=== PATIENT | male | born 1965 | race Caucasian/White ===

== ENCOUNTER 2019-12-07 05:23 | Inpatient (IN) | payer MEDICAID ==
[~2019-12-07] VITALS: Ht 172.7 cm; Wt 106.6 kg
[2019-12-07] VITALS (55 sets, daily range): BP systolic 81–166; BP diastolic 39–89
[~2019-12-07 05:23] MED LIST: AMLO10TA80 MT; ASPI-1497 MT; ATEN-42 MT; ATOR10TA69 MT; GABA-290 MT; GLIP10TA10 MT; HYDR-4001 PO; HYDR12.54 MT; IBUP-2437 PO; LOSA50TA41 PO; TRAM50TA3 PO
[2019-12-07] MEDS ORDERED: SODIUM CHLORIDE 0.9% 1,000 ML IV SCH (06:00)
[2019-12-07] MEDS ORDERED: THROMBIN (BOVINE) 5000 UNITS/VIAL TOP ONE (06:41)
[2019-12-07] MEDS ORDERED: BACITRACIN 15GM TUBE TOP ONE (06:41)
[2019-12-07] MEDS ORDERED: LIDOCAINE HCL/EPINEPHRINE 1%-EPI 1:100,000 20 ML VIAL ONE (06:42)
[2019-12-07] MEDS ORDERED: BACITRACIN 50,000 UNITS/VIAL ONE (06:42)
[2019-12-07] MEDS ORDERED: FENTANYL CITRATE/PF 50MCG/ML 2ML VIAL ONE ×2 (06:44→09:58)
[2019-12-07] MEDS ORDERED: NEOSTIGMINE METHYLSULFATE 1MG/ML 10 ML VIAL ONE (06:45)
[2019-12-07] MEDS ORDERED: ROCURONIUM BROMIDE 10MG/ML VIAL 5ML IV ONE ×2 (06:45→08:59)
[2019-12-07] MEDS ORDERED: PROPOFOL 200MG/20ML VIAL IV ONE (06:45)
[2019-12-07] MEDS ORDERED: GLYCOPYRROLATE 0.2 MG/ML 2ML VIAL ONE ×2 (06:45→09:50)
[2019-12-07] MEDS ORDERED: MIDAZOLAM HCL 2 MG/2 ML VIAL ONE ×2 (06:45→09:58)
[2019-12-07 06:52] LABS: CHLORIDE 101 mEq/L (98-107)
[2019-12-07] MEDS ORDERED: HYDROMORPHONE HCL/PF 2MG/ML (OR) ONE (07:48)
[2019-12-07] MEDS ORDERED: ONDANSETRON HCL 4MG/2ML INJ ONE (07:48)
[2019-12-07] MEDS ORDERED: DEXAMETHASONE 4MG/ML 1ML VIAL ONE (07:48)
[2019-12-07] MEDS ORDERED: ONDANSETRON HCL 4MG/2ML INJ IV PRN (08:00)
[2019-12-07] MEDS ORDERED: HYDROMORPHONE HCL/PF 2MG/ML CPJ IV PRN (08:00)
[2019-12-07] MEDS ORDERED: MEPERIDINE HCL/PF 25MG/ML CPJ IV PRN (08:00)
[2019-12-07] MEDS ORDERED: LABETALOL 5MG/ML SYR 20 MG/4 ML SYRINGE IV PRN (08:00)
[2019-12-07] MEDS ORDERED: MORPHINE SULFATE 2 MG/ML CPJ (NOT FOR IM USE) IV PRN (10:00)
[2019-12-07] MEDS ORDERED: NICARDIPINE 100 MG in SODIUM CHLORIDE 0.9% 60 ML IV PRN (10:45)
[2019-12-07] MEDS ORDERED: NALOXONE INJ IV PRN (10:45)
[2019-12-07] MEDS: DEXT 5%/0.45% NACL KCL 20MEQ/L 1,000 ML IV SCH ×2 (11:29→23:09)
[2019-12-07] MEDS ORDERED: MORPHINE SULFATE 2 MG/ML CPJ (NOT FOR IM USE) IV NR (11:30)
[2019-12-07] MEDS: CEFAZOLIN 1000MG PREMIX 50 ML IV SCH ×2 (12:08→18:17)
[2019-12-07] MEDS: HYDROMORPHONE PCA 10MG/50ML IV PRN (12:08)
[2019-12-07 12:15] LABS: BG BASE EXCESS -2.4 mmol/L (-2.0-2.0); BG DEOXYHEMOGLOBIN 8.1 % (0.0-5.0); BG FRACTION INSPIRED OXYGEN 40; BG HCO3 ACT 26.5 mmol/L (22.0-26.0); BG METHEMOGLOBIN 0.3 % (0.0-1.5); BG OXYGEN SATURATION 91.8 % (92.0-98.5); BG OXYHEMOGLOBIN 90.6 % (94.0-97.0); BG PCO2 64.3 mmHg (35.0-45.0); BG PH 7.233 (7.350-7.450); BG PO2 72.7 mmHg (75.0-100.0); BG PRESSURE SUPPORT 8; BG SAMPLE SITE A-LINE; BG TOTAL HEMOGLOBIN 14.4 g/dL (12.0-18.0); BG VENT MODE VENT - CPAP
[2019-12-07] MEDS ORDERED: IPRATROPIUM/ALBUTEROL 0.5-3(2.5)MG/3ML NEB HHN PRN (12:30)
[2019-12-07] MEDS: DEXAMETHASONE 4MG/ML 1ML VIAL IV SCH ×3 (12:56→23:08)
[2019-12-07 14:05] LABS: BG BASE EXCESS -2.7 mmol/L (-2.0-2.0); BG CARBOXYHEMOGLOBIN 0.8 % (0.5-1.5); BG DEOXYHEMOGLOBIN 6.9 % (0.0-5.0); BG FRACTION INSPIRED OXYGEN 40; BG HCO3 ACT 22.6 mmol/L (22.0-26.0); BG METHEMOGLOBIN 0.2 % (0.0-1.5); BG OXYHEMOGLOBIN 92.1 % (94.0-97.0); BG PCO2 41.2 mmHg (35.0-45.0); BG PH 7.357 (7.350-7.450); BG PO2 69.4 mmHg (75.0-100.0); BG PRESSURE SUPPORT 12; BG SAMPLE SITE A-LINE; BG TOTAL HEMOGLOBIN 13.4 g/dL (12.0-18.0); BG VENT MODE VENT - CPAP
[2019-12-07] MEDS: ONDANSETRON INJ IV PRN ×2 (15:19→23:08)
[2019-12-07] MEDS: GLIPIZIDE 10MG TABLET PO SCH (17:28)
[2019-12-07] MEDS: IPRATROPIUM/ALBUTEROL 0.5-3(2.5)MG/3ML NEB HHN SCH (19:53)
[2019-12-08] VITALS (60 sets, daily range): BP systolic 46–255; BP diastolic 38–242
[2019-12-08] MEDS: IPRATROPIUM/ALBUTEROL 0.5-3(2.5)MG/3ML NEB HHN SCH ×4 (02:02→20:57)
[2019-12-08] MEDS ORDERED: MORPHINE SULFATE 4 MG/ML CPJ (NOT FOR IM USE) IV ONE (02:23)
[2019-12-08] MEDS: CEFAZOLIN 1000MG PREMIX 50 ML IV SCH ×2 (03:00→11:19)
[2019-12-08] MEDS: MORPHINE SULFATE 4 MG/ML CPJ (NOT FOR IM USE) IV PRN ×10 (03:19→23:05)
[2019-12-08] MEDS: DEXAMETHASONE 4MG/ML 1ML VIAL IV SCH ×4 (05:39→23:05)
[2019-12-08 06:54] LABS: HEMATOCRIT. 38.5 % (42.0-52.0); HEMOGLOBIN. 13.2 g/dL (14.0-18.0); MEAN CORPUSCULAR HEMOGLOBIN 33.2 pg (28.0-32.0); MEAN CORPUSCULAR VOLUME 96.7 fL (80.0-94.0); MEAN PLATELET VOLUME 8.8 fl (7.4-10.4); PLATELET 250 x1000/uL (130-400); RED BLOOD CELL COUNT 3.98 mill/uL (4.7-6.1); RED CELL DISTRIBUTION WIDTH 13.7 % (11.6-14.6)
[2019-12-08 07:09] LABS: CHLORIDE 102 mEq/L (98-107)
[2019-12-08] MEDS: HYDROMORPHONE PCA 10MG/50ML IV PRN (10:57)
[2019-12-08] MEDS ORDERED: OXYCODONE HCL/ACETAMINOPHEN 5/325MG TABLET PO NR (11:00)
[2019-12-08 13:26] LABS: PLATELET ESTIMATE NORMAL
[2019-12-08] MEDS ORDERED: OXYCODONE HCL/ACETAMINOPHEN 5/325MG TABLET PO PRN (13:45)
[2019-12-08] MEDS: NICOTINE 14MG PATCH TD SCH (14:29)
[2019-12-08] MEDS: GLIPIZIDE 10MG TABLET PO SCH (17:12)
[2019-12-08] MEDS: DIPHENHYDRAMINE INJ IV PRN (18:53)
[2019-12-08] MEDS: LOSARTAN POTASSIUM 50 MG TABLET PO SCH (21:07)
[2019-12-08] MEDS: ATORVASTATIN CALCIUM 10MG TABLET PO SCH (21:07)
[2019-12-08] MEDS: DEXT 5%/0.45% NACL KCL 20MEQ/L 1,000 ML IV SCH (21:08)
[2019-12-08] MEDS: GABAPENTIN 300MG CAPSULE PO SCH (21:08)
[2019-12-08] MEDS ORDERED: DEXTROSE 50% WATER 50ML SYRINGE IV PRN (21:45)
[2019-12-08] MEDS: ONDANSETRON INJ IV PRN (23:04)
[2019-12-09] VITALS (51 sets, daily range): BP systolic 100–163; BP diastolic 52–96
[2019-12-09] MEDS: IPRATROPIUM/ALBUTEROL 0.5-3(2.5)MG/3ML NEB HHN SCH ×4 (02:30→20:17)
[2019-12-09] MEDS: DIPHENHYDRAMINE INJ IV PRN ×3 (02:41→21:22)
[2019-12-09] MEDS: MORPHINE SULFATE 4 MG/ML CPJ (NOT FOR IM USE) IV PRN ×8 (02:42→21:21)
[2019-12-09 05:26] LABS: HEMATOCRIT. 38.9 % (42.0-52.0); HEMOGLOBIN. 13.2 g/dL (14.0-18.0); MEAN CORPUSCULAR HEMOGLOBIN 33.1 pg (28.0-32.0); MEAN CORPUSCULAR VOLUME 97.4 fL (80.0-94.0); MEAN PLATELET VOLUME 8.9 fl (7.4-10.4); PLATELET 281 x1000/uL (130-400)
[2019-12-09 05:34] LABS: CHLORIDE 100 mEq/L (98-107)
[2019-12-09 05:59] LABS: FOLIC ACID (FOLATE) SERUM 5.8 ng/mL (>5.38)
[2019-12-09] MEDS: BLOOD SUGAR DIAGNOSTIC STRIP TEST SCH ×4 (06:22→21:15)
[2019-12-09] MEDS: INSULIN LISPRO 100 UNITS/ML SUBCUT SCH ×4 (06:25→21:23)
[2019-12-09] MEDS: DEXAMETHASONE 4MG/ML 1ML VIAL IV SCH ×3 (06:26→19:24)
[2019-12-09] MEDS: GABAPENTIN 300MG CAPSULE PO SCH ×3 (06:28→21:20)
[2019-12-09 07:30] LABS: PLATELET ESTIMATE NORMAL
[2019-12-09] MEDS: ATENOLOL 25MG TABLET PO SCH (08:20)
[2019-12-09] MEDS: AMLODIPINE 10MG TABLET PO SCH (08:20)
[2019-12-09] MEDS: NICOTINE 14MG PATCH TD SCH (08:20)
[2019-12-09] MEDS: HYDROCHLOROTHIAZIDE 12.5MG CAPSULE PO SCH (09:00)
[2019-12-09] MEDS: ONDANSETRON INJ IV PRN (11:10)
[2019-12-09] MEDS: HYDROMORPHONE PCA 10MG/50ML IV PRN (14:18)
[2019-12-09] MEDS: GLIPIZIDE 10MG TABLET PO SCH (19:23)
[2019-12-09] MEDS: PANTOPRAZOLE 40MG DR TABLET PO SCH (20:12)
[2019-12-09] MEDS: ATORVASTATIN CALCIUM 10MG TABLET PO SCH (21:20)
[2019-12-09] MEDS: LOSARTAN POTASSIUM 50 MG TABLET PO SCH (21:20)
[2019-12-10] VITALS: BP 110/60
[2019-12-10] MEDS: DEXAMETHASONE 4MG/ML 1ML VIAL IV SCH ×3 (00:41→12:55)
[2019-12-10] MEDS: DEXT 5%/0.45% NACL KCL 20MEQ/L 1,000 ML IV SCH (00:42)
[2019-12-10] MEDS: MORPHINE SULFATE 4 MG/ML CPJ (NOT FOR IM USE) IV PRN (01:44)
[2019-12-10] MEDS: IPRATROPIUM/ALBUTEROL 0.5-3(2.5)MG/3ML NEB HHN SCH ×4 (02:00→21:36)
[2019-12-10 04:00] VITALS: BP 115/64
[2019-12-10] MEDS: GABAPENTIN 300MG CAPSULE PO SCH ×3 (06:20→21:24)
[2019-12-10] MEDS: BLOOD SUGAR DIAGNOSTIC STRIP TEST SCH ×4 (06:59→21:00)
[2019-12-10 08:00] VITALS: BP 124/69
[2019-12-10] MEDS: PANTOPRAZOLE 40MG DR TABLET PO SCH (08:39)
[2019-12-10] MEDS: GLIPIZIDE 10MG TABLET PO SCH ×2 (08:40→17:08)
[2019-12-10] MEDS: DOCUSATE SODIUM 100MG CAPSULE PO SCH ×2 (08:40→17:00)
[2019-12-10] MEDS: HYDROCHLOROTHIAZIDE 12.5MG CAPSULE PO SCH (08:40)
[2019-12-10] MEDS: ATENOLOL 25MG TABLET PO SCH (08:41)
[2019-12-10] MEDS: AMLODIPINE 10MG TABLET PO SCH (08:41)
[2019-12-10] MEDS: NICOTINE 14MG PATCH TD SCH (08:41)
[2019-12-10] MEDS: INSULIN LISPRO 100 UNITS/ML SUBCUT SCH ×4 (08:44→21:00)
[2019-12-10 10:10] LABS: HEMATOCRIT. 39.9 % (42.0-52.0); HEMOGLOBIN. 13.7 g/dL (14.0-18.0); MEAN CORPUSCULAR VOLUME 96.4 fL (80.0-94.0); MEAN PLATELET VOLUME 8.5 fl (7.4-10.4); PLATELET 284 x1000/uL (130-400); RED BLOOD CELL COUNT 4.13 mill/uL (4.7-6.1); RED CELL DISTRIBUTION WIDTH 13.9 % (11.6-14.6)
[2019-12-10 10:25] LABS: CHLORIDE 95 mEq/L (98-107)
[2019-12-10 12:00] VITALS: BP 123/81
[2019-12-10 16:00] VITALS: BP 129/70
[2019-12-10] MEDS ORDERED: ONDANSETRON HCL 4MG TABLET PO PRN (16:15)
[2019-12-10] MEDS ORDERED: HYDROCODONE/ACETAMINOPHEN 5/325MG TABLET PO PRN (16:15)
[2019-12-10] MEDS ORDERED: HYDROMORPHONE HCL/PF 2MG/ML CPJ IV PRN (16:15)
[2019-12-10] MEDS: HYDROMORPHONE HCL 2MG TABLET PO PRN ×2 (17:02→23:12)
[2019-12-10] MEDS: DEXAMETHASONE 4MG TABLET PO SCH (18:00)
[2019-12-10 20:00] VITALS: BP 121/70
[2019-12-10] MEDS: HYDROCODONE/ACETAMINOPHEN 10/325MG TABLET PO PRN (20:32)
[2019-12-10 20:38] LABS: PLATELET ESTIMATE NORMAL
[2019-12-10] MEDS: ATORVASTATIN CALCIUM 10MG TABLET PO SCH (21:24)
[2019-12-10] MEDS: LOSARTAN POTASSIUM 50 MG TABLET PO SCH (21:25)
[2019-12-11] VITALS: BP 112/92
[2019-12-11] MEDS: DEXAMETHASONE 4MG TABLET PO SCH ×3 (00:48→12:15)
[2019-12-11] MEDS: IPRATROPIUM/ALBUTEROL 0.5-3(2.5)MG/3ML NEB HHN SCH ×2 (01:37→07:44)
[2019-12-11] MEDS: HYDROCODONE/ACETAMINOPHEN 10/325MG TABLET PO PRN ×2 (02:56→09:53)
[2019-12-11] MEDS: GABAPENTIN 300MG CAPSULE PO SCH (05:28)
[2019-12-11] MEDS: HYDROMORPHONE HCL 2MG TABLET PO PRN ×2 (06:04→12:16)
[2019-12-11 06:49] LABS: BASOPHILS % 0.2 % (0.0-2.0); HEMATOCRIT. 41.5 % (42.0-52.0); HEMOGLOBIN. 14.3 g/dL (14.0-18.0); LYMPHOCYTES % 10.9 % (20.0-50.0); MEAN CORPUSCULAR HEMOGLOBIN 32.8 pg (28.0-32.0); MEAN CORPUSCULAR VOLUME 95.4 fL (80.0-94.0); MEAN PLATELET VOLUME 8.5 fl (7.4-10.4); MONOCYTES % 10.1 % (2.0-8.0); NEUTROPHILS % 78.8 % (40.0-76.0); PLATELET 284 x1000/uL (130-400); RED BLOOD CELL COUNT 4.35 mill/uL (4.7-6.1); RED CELL DISTRIBUTION WIDTH 13.9 % (11.6-14.6)
[2019-12-11 07:20] LABS: CHLORIDE 99 mEq/L (98-107)
[2019-12-11] MEDS ORDERED: FAMOTIDINE 20MG TABLET PO SCH (07:20)
[2019-12-11] MEDS: BLOOD SUGAR DIAGNOSTIC STRIP TEST SCH ×2 (07:20→12:19)
[2019-12-11] MEDS: DOCUSATE SODIUM 100MG CAPSULE PO SCH (09:00)
[2019-12-11] MEDS: NICOTINE 14MG PATCH TD SCH (09:00)
[2019-12-11] MEDS: GLIPIZIDE 10MG TABLET PO SCH (09:47)
[2019-12-11] MEDS: HYDROCHLOROTHIAZIDE 12.5MG CAPSULE PO SCH (09:51)
[2019-12-11] MEDS: ATENOLOL 25MG TABLET PO SCH (09:52)
[2019-12-11] MEDS: AMLODIPINE 10MG TABLET PO SCH (09:52)
[2019-12-11] MEDS: INSULIN LISPRO 100 UNITS/ML SUBCUT SCH ×2 (10:01→12:31)
[2019-12-11 12:00] VITALS: BP 113/76
[2019-12-11 12:16] VITALS: BP 137/99
== END 2019-12-11 13:25 | disposition home or self-care (01) | DRG 321 ==
LOC: OR 05:23 → MICUNO 05:24 → 6EST 12-09 22:40
PROVIDERS: ADMIT Neurological Surgery; ATTEND Neurological Surgery
PROC: 0RG20K1 Fusion of 2 or more Cervical Vertebral Joints with Nonautologous Tissue Substitute, Posterior Approach, Posterior Column, Open Approach (ICD-10-PCS; principal; 2019-12-07)
PROC: BR141ZZ Fluoroscopy of Cervical Facet Joint(s) using Low Osmolar Contrast (ICD-10-PCS; 2019-12-07)
PROC: 4A11X4G Monitoring of Peripheral Nervous Electrical Activity, Intraoperative, External Approach (ICD-10-PCS; 2019-12-07)
DX: M48.02 Spinal stenosis, cervical region (principal); G82.50 Quadriplegia, unspecified; M47.12 Other spondylosis with myelopathy, cervical region; E66.01 Morbid (severe) obesity due to excess calories; E11.9 Type 2 diabetes mellitus without complications; D53.9 Nutritional anemia, unspecified; D72.829 Elevated white blood cell count, unspecified; E78.5 Hyperlipidemia, unspecified; G95.20 Unspecified cord compression; M47.22 Other spondylosis with radiculopathy, cervical region; I10 Essential (primary) hypertension; R26.89 Other abnormalities of gait and mobility; Z79.899 Other long term (current) drug therapy; Z68.35 Body mass index [BMI] 35.0-35.9, adult
CPT/HCPCS: 36415; 36600; 71045; 72040; 72141; 76000; 80048; 82375; 82607; 82746; 82805; 82962; 85025; 86850; 86900; 88304; 88311; 94002; 94640; 95925; 95926; 95928; 95929; 97162; C1713; J0690; J1100; J1170; J1200; J1815; J2250; J2270; J2405; J2704; J2710; J3010; J3490; J8540; L0172